=== PATIENT | female | born 1990 | race Caucasian/White ===

== ENCOUNTER 2019-01-21 19:24 | Emergency (ER) | payer BC ==
[~2019-01-21] VITALS: Ht 177.8 cm; Wt 81.0 kg
--- NOTE | 2019-01-21 19:27 | ED.ADGEN ---
Past History Past Medical History: Constipation Adult General Chief Complaint Chief Complaint ".. I am having back.. and some abdomen pain....".. " I went to the urgency care earlier to day.. and they said I had a UTI.. and started me on Bactrim.. but then tonight.. I got really severe 9-10 /10 flank pain...it ran into my groin.. like a razor... cutting me.. but I just then I was urinating.. and something came out.. and the pain stopped.. " HPI HPI Patient is a 28 year old female who presents with above hx and of severe 10/10 Rt. flank pain. Patient seen earlier at urgent care and was told she had a urinary tract infection. Patient reports pain started in her upper right flank and pain gradually become more sharp stabbing and radiating to her right groin. No history of kidney stones. No history of recent UTIs. No history immunosuppression. No history of travel or specific ill contacts. No history of trauma. Patient normally healthy. While patient was obtaining a urine for evaluation felt she had passage of some material . Patient appears to have passed a kidney stone into the stool. By time exam patient's pain is almost completely resolved. No history of ovarian cysts. Patient is normally healthy. Patient states this stabbing pain was the most severe that she has ever had and was very nauseated with it . Patient states she may have let her self to get dehydrated today prior to the onset of the right flank pain. Patient does follow with her primary care doctor Rudy. Review of Systems Review of Systems Constitutional: Denies fever or chills [] Eyes: Denies change in visual acuity, redness, or eye pain [] HENT: Denies nasal congestion or sore throat [] Respiratory: Denies cough or shortness of breath [] Cardiovascular: No additional information not addressed in HPI [] GI: Complains of severe right flank abdominal pain, nausea. Denies vomiting, bloody stools or diarrhea [] : Complaints of hematuria [] Musculoskeletal: Severe right flank back pain[] Integument: Denies rash or skin lesions [] Neurologic: Denies headache, focal weakness or sensory changes [] Endocrine: Denies polyuria or polydipsia [] All other systems were reviewed and found to be within normal limits, except as documented in this note. Family History Family History Noncontributory Current Medications Current Medications Current Medications Medications (Trade) Dose Ordered Sig/Montse Start Time Stop Time Status Last Admin Dose Admin Famotidine (Pepcid Vial) 20 mg 1X ONCE 01/21/19 20:15 01/21/19 20:16 DC 01/21/19 20:16 20 MG Ketorolac Tromethamine (Toradol 30mg Vial) 30 mg 1X ONCE 01/21/19 20:15 01/21/19 20:16 DC 01/21/19 20:16 30 MG Lactated Ringer's 1,000 ml @ 1,000 mls/hr Q1H 01/21/19 19:57 01/21/19 20:56 DC 01/21/19 20:15 1,000 MLS/HR Ondansetron HCl (Zofran) 8 mg 1X ONCE 01/21/19 20:15 01/21/19 20:16 DC 01/21/19 20:16 8 MG Allergies Allergies Allergies Coded Allergies Type Severity Reaction Last Updated Verified No Known Drug Allergies 01/21/19 No Physical Exam Physical Exam Constitutional: Well developed, well nourished, no acute distress by the time of my exam, non-toxic appearance. []( Hx severe distress on arrival to ED.) HENT: Normocephalic, atraumatic, bilateral external ears normal, oropharynx moist, no oral exudates, nose normal. [] Eyes: PERRLA, EOMI, conjunctiva normal, no discharge. [] Neck: Normal range of motion, no tenderness, supple, no stridor. [] Cardiovascular:Heart rate regular rhythm, no murmur [] Lungs & Thorax: Bilateral breath sounds clear to auscultation [] Abdomen: Bowel sounds creased, soft, some right flank tenderness on percussion, , no masses, no pulsatile masses. [] Declines rectal exam or pelvic exam at this time. No rebound pain. Skin: Warm, dry, no erythema, no rash. [] Back: No tenderness, no CVA tenderness. [] Extremities: No tenderness, no cyanosis, no clubbing, ROM intact, no edema. [] No psoas sign or heeltap. Neurologic: Alert and oriented X 3, normal motor function, normal sensory function, no focal deficits noted. [] Psychologic: Affect normal, judgement normal, mood normal. [] Current Patient Data Vital Signs Vital Signs Date Time Temp Pulse Resp B/P (MAP) Pulse Ox O2 Delivery O2 Flow Rate FiO2 01/21/19 21:33 66 18 126/92 (103) 99 Room Air 01/21/19 19:24 98.5 Lab Results Laboratory Tests Test 01/21/19 19:43 01/21/19 19:53 01/21/19 19:55 Urine Collection Type Unknown Urine Color Yellow Urine Clarity Hazy Urine pH 6.0 Urine Specific [place] >=1.030 Urine Protein 30 mg/dl (NEG-TRACE) Urine Glucose (UA) Neg mg/dL (NEG) Urine Ketones (Stick) Trace mg/dL (NEG) Urine Blood Large (NEG) Urine Nitrite Neg (NEG) Urine Bilirubin Neg (NEG) Urine Urobilinogen Dipstick 0.2 mg/dL (0.2 mg/dL) Urine Leukocyte Esterase Neg (NEG) Urine RBC 3-5 /HPF (0-2) Urine WBC 0 /HPF (0-4) Urine Squamous Epithelial Cells Few /LPF Urine Bacteria Few /HPF (0-FEW) Urine Mucus Slight /LPF Urine Opiates Screen Neg (NEG) Urine Methadone Screen Neg (NEG) Urine Barbiturates Neg (NEG) Urine Phencyclidine Screen Neg (NEG) Urine Amphetamine/Methamphetamine Neg (NEG) Urine Benzodiazepines Screen Neg (NEG) Urine Cocaine Screen Neg (NEG) Urine Cannabinoids Screen Neg (NEG) Urine Ethyl Alcohol Neg (NEG) POC Urine HCG, Qualitative hcg negative (Negative) White Blood Count 11.7 x10^3/uL (4.0-11.0) H Red Blood Count 5.10 x10^6/uL (3.50-5.40) Hemoglobin 14.5 g/dL (12.0-15.5) Hematocrit 43.9 % (36.0-47.0) Mean Corpuscular Volume 86 fL (79-100) Mean Corpuscular Hemoglobin 29 pg (25-35) Mean Corpuscular Hemoglobin Concent 33 g/dL (31-37) Red Cell Distribution Width 13.0 % (11.5-14.5) Platelet Count 268 x10^3/uL (140-400) Neutrophils (%) (Auto) 78 % (31-73) H Lymphocytes (%) (Auto) 16 % (24-48) L Monocytes (%) (Auto) 5 % (0-9) Eosinophils (%) (Auto) 0 % (0-3) Basophils (%) (Auto) 1 % (0-3) Neutrophils # (Auto) 9.1 x10^3uL (1.8-7.7) H Lymphocytes # (Auto) 1.9 x10^3/uL (1.0-4.8) Monocytes # (Auto) 0.6 x10^3/uL (0.0-1.1) Eosinophils # (Auto) 0.0 x10^3/uL (0.0-0.7) Basophils # (Auto) 0.1 x10^3/uL (0.0-0.2) Sodium Level 139 mmol/L (136-145) Potassium Level 3.7 mmol/L (3.5-5.1) Chloride Level 104 mmol/L (98-107) Carbon Dioxide Level 26 mmol/L (21-32) Anion Gap 9 (6-14) Blood Urea Nitrogen 11 mg/dL (7-20) Creatinine 0.9 mg/dL (0.6-1.0) Estimated GFR (Cockcroft-Gault) 74.0 Glucose Level 103 mg/dL (70-99) H Calcium Level 8.9 mg/dL (8.5-10.1) Total Bilirubin 0.3 mg/dL (0.2-1.0) Direct Bilirubin 0.1 mg/dL (0.0-0.2) Aspartate Amino Transferase (AST) 13 U/L (15-37) L Alanine Aminotransferase (ALT) 12 U/L (14-59) L Alkaline Phosphatase 70 U/L (46-116) Total Protein 7.5 g/dL (6.4-8.2) Albumin 3.4 g/dL (3.4-5.0) EKG EKG [] Radiology/Procedures Radiology/Procedures My interpretation of pain abdomen film shows no acute cardiopulmonary findings. No free air in the diaphragm. Nonspecific bowel Gas pattern. There is stool in the colon and appears to have findings of constipation. Course & Med Decision Making Course & Med Decision Making Pertinent Labs and Imaging studies reviewed. (See chart for details) Patient continue to hydrate. Patient to complete her course of Bactrim as previously directed. If passes another stone save for evaluation. Follow up with primary. If increased pain tonight return and plan on CT . Stay on clear fluids tonight. Follow up urine cultures. [] Final Impression Final Impression 1. Renal Stone[] 2. Hx.Abd. and Rt. Flank Pain 3. Hematuria 4. Leukocytosis 11.7 Dragon Disclaimer Dragon Disclaimer This electronic medical record was generated, in whole or in part, using a voice recognition dictation system. Discharge Summary Visit Information Final Diagnosis Problems Medical Problems: (1) Renal colic on right side Status: Acute Brief Hospital Course Allergies Allergies Coded Allergies Type Severity Reaction Last Updated Verified No Known Drug Allergies 01/21/19 No Vital Signs Vital Signs Date Time Temp Pulse Resp B/P (MAP) Pulse Ox O2 Delivery O2 Flow Rate FiO2 01/21/19 21:33 66 18 126/92 (103) 99 Room Air 01/21/19 19:24 98.5 Lab Results Laboratory Tests Test 01/21/19 19:43 01/21/19 19:53 01/21/19 19:55 Urine Collection Type Unknown Urine Color Yellow Urine Clarity Hazy Urine pH 6.0 Urine Specific [place] >=1.030 Urine Protein 30 mg/dl (NEG-TRACE) Urine Glucose (UA) Neg mg/dL (NEG) Urine Ketones (Stick) Trace mg/dL (NEG) Urine Blood Large (NEG) Urine Nitrite Neg (NEG) Urine Bilirubin Neg (NEG) Urine Urobilinogen Dipstick 0.2 mg/dL (0.2 mg/dL) Urine Leukocyte Esterase Neg (NEG) Urine RBC 3-5 /HPF (0-2) Urine WBC 0 /HPF (0-4) Urine Squamous Epithelial Cells Few /LPF Urine Bacteria Few /HPF (0-FEW) Urine Mucus Slight /LPF Urine Opiates Screen Neg (NEG) Urine Methadone Screen Neg (NEG) Urine Barbiturates Neg (NEG) Urine Phencyclidine Screen Neg (NEG) Urine Amphetamine/Methamphetamine Neg (NEG) Urine Benzodiazepines Screen Neg (NEG) Urine Cocaine Screen Neg (NEG) Urine Cannabinoids Screen Neg (NEG) Urine Ethyl Alcohol Neg (NEG) Bedside Urine HCG, Qualitative hcg negative (Negative) White Blood Count 11.7 x10^3/uL (4.0-11.0) Red Blood Count 5.10 x10^6/uL (3.50-5.40) Hemoglobin 14.5 g/dL (12.0-15.5) Hematocrit 43.9 % (36.0-47.0) Mean Corpuscular Volume 86 fL (79-100) Mean Corpuscular Hemoglobin 29 pg (25-35) Mean Corpuscular Hemoglobin Concent 33 g/dL (31-37) Red Cell Distribution Width 13.0 % (11.5-14.5) Platelet Count 268 x10^3/uL (140-400) Neutrophils (%) (Auto) 78 % (31-73) Lymphocytes (%) (Auto) 16 % (24-48) Monocytes (%) (Auto) 5 % (0-9) Eosinophils (%) (Auto) 0 % (0-3) Basophils (%) (Auto) 1 % (0-3) Neutrophils # (Auto) 9.1 x10^3uL (1.8-7.7) Lymphocytes # (Auto) 1.9 x10^3/uL (1.0-4.8) Monocytes # (Auto) 0.6 x10^3/uL (0.0-1.1) Eosinophils # (Auto) 0.0 x10^3/uL (0.0-0.7) Basophils # (Auto) 0.1 x10^3/uL (0.0-0.2) Sodium Level 139 mmol/L (136-145) Potassium Level 3.7 mmol/L (3.5-5.1) Chloride Level 104 mmol/L (98-107) Carbon Dioxide Level 26 mmol/L (21-32) Anion Gap 9 (6-14) Blood Urea Nitrogen 11 mg/dL (7-20) Creatinine 0.9 mg/dL (0.6-1.0) Estimated GFR (Cockcroft-Gault) 74.0 Glucose Level 103 mg/dL (70-99) Calcium Level 8.9 mg/dL (8.5-10.1) Total Bilirubin 0.3 mg/dL (0.2-1.0) Direct Bilirubin 0.1 mg/dL (0.0-0.2) Aspartate Amino Transf (AST/SGOT) 13 U/L (15-37) Alanine Aminotransferase (ALT/SGPT) 12 U/L (14-59) Alkaline Phosphatase 70 U/L (46-116) Total Protein 7.5 g/dL (6.4-8.2) Albumin 3.4 g/dL (3.4-5.0) Brief Hospital Course Ms. Hidalgo is a 28 old female who presented with Rt. Flank pain and Hematuria. Discharge Information Condition at Discharge: Improved, Stable Disposition/Orders: D/C to Home Dischare Medications Current Medications Lactated Ringer's 1,000 ml @ 1,000 mls/hr Q1H IV Last administered on at 20:15; Admin Dose 1,000 MLS/HR; Start 01/21/19 at 19:57; Stop 01/21/19 at 20:56; Status DC Ondansetron HCl (Zofran) 8 mg 1X ONCE IV Last administered on 01/21/19at 20:16 ; Admin Dose 8 MG; Start 01/21/19 at 20:15; Stop 01/21/19 at 20:16; Status DC Famotidine (Pepcid Vial) 20 mg 1X ONCE IVP Last administered on 01/21/19at 20: 16; Admin Dose 20 MG; Start 01/21/19 at 20:15; Stop 01/21/19 at 20:16; Status DC Ketorolac Tromethamine (Toradol 30mg Vial) 30 mg 1X ONCE IV Last administered on 01/21/19at 20:16; Admin Dose 30 MG; Start 01/21/19 at 20:15; Stop 01/21/19 at 20:16; Status DC Active Scripts Active Zofran (Ondansetron Hcl) 8 Mg Tablet 8 Mg PO QIDPRN PRN Hydrocodone-Ibuprofen 7.5-200 (Hydrocodone/Ibuprofen) 1 Each Tablet 1 Tab PO PRN Q6HRS PRN Dragon Disclaimer This chart was dictated in whole or in part using Voice Recognition software in a busy, high-work load, and often noisy Emergency Department environment. It may contain unintended and wholly unrecognized errors or omissions. SEKOU BLOCK MD Jan 21, 2019 19:27
[2019-01-21] MEDS ORDERED: IV RINGERS SOLUTION,LACTATED 1,000 ML IV SCH (19:57)
[2019-01-21 20:15] LABS: BASO # 0.1 x10^3/uL (0.0-0.2); BASO % 1 % (0-3); EOS % 0 % (0-3); HEMATOCRIT 43.9 % (36.0-47.0); HEMOGLOBIN 14.5 g/dL (12.0-15.5); LYMPH # 1.9 x10^3/uL (1.0-4.8); LYMPH % 16 % (24-48); MEAN CORPUSCULAR HEMOGLOBIN 29 pg (25-35); MEAN CORPUSCULAR HGB CONC 33 g/dL (31-37); MEAN CORPUSCULAR VOLUME 86 fL (79-100); MONO # 0.6 x10^3/uL (0.0-1.1); MONO % 5 % (0-9); NEUT # 9.1 x10^3uL (1.8-7.7); NEUT % 78 % (31-73); PLATELET COUNT 268 x10^3/uL (140-400); WHITE BLOOD COUNT 11.7 x10^3/uL (4.0-11.0)
[2019-01-21] MEDS ORDERED: KETOROLAC 30 MG/ML VIAL. IV ONE (20:15)
[2019-01-21] MEDS ORDERED: FAMOTIDINE 20 MG/2 ML VIAL IVP ONE (20:15)
[2019-01-21] MEDS ORDERED: ONDANSETRON PF 4 MG/2 ML VIAL. IV ONE (20:15)
[2019-01-21 20:48] LABS: ALBUMIN 3.4 g/dL (3.4-5.0); CALCIUM 8.9 mg/dL (8.5-10.1); CREATININE 0.9 mg/dL (0.6-1.0); DIRECT BILIRUBIN 0.1 mg/dL (0.0-0.2); POTASSIUM 3.7 mmol/L (3.5-5.1); TOTAL BILIRUBIN 0.3 mg/dL (0.2-1.0); TOTAL PROTEIN 7.5 g/dL (6.4-8.2)
[2019-01-21 20:51] LABS: BACTERIA,URINE FEW /HPF (0-FEW); BILIRUBIN,URINE NEG (NEG); CLARITY,URINE HAZY; COLOR,URINE YELLOW; GLUCOSE,URINE NEG (NEG); NITRITE,URINE NEG (NEG); UROBILINOGEN,URINE 0.2 mg/dL (0.2 mg/dL); WBC,URINE 0 /HPF (0-4)
[2019-01-21 20:52] LABS: SQUAMOUS EPITHELIAL CELL,UR FEW /LPF
[2019-01-21 21:14] LABS: BARBITURATES NEG (NEG); BENZODIAZEPINES NEG (NEG); CANNABINOIDS NEG (NEG); COCAINE NEG (NEG); METHADONE NEG (NEG); OPIATES NEG (NEG); PHENCYCLIDINE NEG (NEG)
[2019-01-21 21:17] LABS: AMPHETAMINE/METHAMPHETAMINE NEG (NEG)
[2019-01-21] MEDS ORDERED: ONDA8TAB9 PO (21:21)
[2019-01-21] MEDS ORDERED: HYDR-1179 PO (21:21)
[2019-01-21 21:33] VITALS: BP 126/92
--- NOTE | 2019-01-22 00:26 | RAD ---
Indication:Right sided severe abdomen pain today, stone in urine 5 min ago TECHNIQUE:Acute abdominal series COMPARISON: None FINDINGS: Heart is normal in size. Lungs are clear. No pneumothorax or pleural effusion. No abnormally dilated bowel loops or air-fluid levels. No calcific densities projecting over the kidneys to suggest apparent renal stones. Moderate diffuse colonic stool burden. Visualized bones are within normal limits. IMPRESSION: No acute findings. Electronically signed by: Ganga Cedeno DO (01/22/2019 12:23 AM) [id number]
== END 2019-01-21 21:35 | disposition home or self-care (01) ==
LOC: ER 19:24
DX: N20.0 Calculus of kidney (principal); D72.829 Elevated white blood cell count, unspecified; E86.0 Dehydration
CPT/HCPCS: 36415; 74022; 80048; 80076; 80307; 81001; 81025; 85025; 96361; 96374; 96375; 99284; J1885; J2405; J3490; J7120